=== PATIENT | male | born 1945 | race Caucasian/White ===

== ENCOUNTER 2016-08-24 07:24 | Outpatient (CLI) | payer MEDICARE | END 2016-08-24 07:25 | disposition home or self-care (01) | DX: E11.9 Type 2 diabetes mellitus without complications (principal); E03.9 Hypothyroidism, unspecified ==

== ENCOUNTER 2016-12-06 13:14 | Outpatient (CLI) | payer OTHER ==
[2016-12-06 18:54] LABS: HEMOGLOBIN A1C 0.81 g/dL
== END 2016-12-06 13:15 | disposition home or self-care (01) ==
LOC: LAB.F 13:14
PROVIDERS: ATTEND Internal Medicine
DX: E11.9 Type 2 diabetes mellitus without complications (principal)
CPT/HCPCS: 36415; 83036

== ENCOUNTER 2016-12-13 10:41 | Emergency (ER) | payer OTHER ==
[2016-12-13 11:09] LABS: BASOPHILS # (AUTO) 0.3 10^3/uL (0.0-0.1); BASOPHILS % (AUTO) 1.5 %; EOSINOPHILS # (AUTO) 0.1 10^3/uL (0.0-0.7); EOSINOPHILS % (AUTO) 0.8 %; HCT - HEMATOCRIT 44.7 % (42.0-52.0); HGB - HEMOGLOBIN 15.5 g/dL (14.0-18.0); LYMPHOCYTES # (AUTO) 0.6 10^3/uL (1.5-3.5); LYMPHOCYTES % (AUTO) 3.5 %; MEAN CORPUSCULAR HEMOGLOBIN 32.5 pg (27.0-31.0); MEAN CORPUSCULAR HGB CONC 34.7 g/dL (32.0-36.0); MEAN CORPUSCULAR VOLUME 93.6 fL (80.0-94.0); MEAN PLATELET VOLUME 8.1 fL (7.4-11.4); MONOCYTES # (AUTO) 0.7 10^3/uL (0.0-1.0); NEUTROPHILS # (AUTO) 15.7 10^3/uL (1.5-6.6); NEUTROPHILS % (AUTO) 90.2 %; RED BLOOD COUNT 4.78 10^6/uL (4.70-6.10); RED CELL DISTRIBUTION WIDTH 13.2 % (12.0-15.0); UNCORRECTED WHITE BLOOD COUNT 17.4 x10^3/uL; WHITE BLOOD COUNT 17.4 x10^3/uL (4.8-10.8)
--- NOTE | 2016-12-13 11:14 | ED Physician Documentation ---
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 denies: Fever Cardiac: denies: Chest pain / pressure, Palpitations Respiratory: denies: Dyspnea GI: denies: Abdominal Pain, Nausea, Vomiting, Diarrhea : denies: Dysuria Musculoskeletal: reports: Neck pain (left side) Neurologic: reports: Syncope, Head injury. denies: Generalized weakness, Headache Endocrine: denies: Easy bruising / bleeding Immunocompromised: denies: Immunocompromised PD PAST MEDICAL HISTORY - Past Medical History Cardiovascular: None Respiratory: None Endocrine/Autoimmune: HyPOthyroidism GI: GERD, Colon polyps : Benign prostate hypertrophy HEENT: None Psych: None Musculoskeletal: None Derm: None - Past Surgical History General: Colonoscopy, EGD Derm: Other - Present Medications Home Medications: Ambulatory Orders Medication Instructions Recorded Confirmed Aspirin EC [Ecotrin] 81 mg PO DAILY 03/30/13 12/13/16 Levothyroxine [Synthroid] 112 mcg PO QDAC 03/30/13 12/13/16 Omeprazole 20 mg PO BID 03/30/13 12/13/16 - Allergies Allergies/Adverse Reactions: Allergies Allergy/AdvReac Type Severity Reaction Status Date / Time latex Allergy unknown Verified 03/30/13 09:29 crab Allergy Unknown Hives Uncoded 03/30/13 09:29 - Social History Does the pt smoke?: No Smoking Status: Never smoker Does the pt drink ETOH?: Yes Does the pt have substance abuse?: No PD ED PE NORMAL - Vitals Vital signs reviewed: Yes (HTN) - General General: Alert and oriented X 3 - HEENT HEENT: PERRL. No: Atraumatic (abrasions and bruising to left face and scalp) - Neck Neck: No: No bony TTP (mild diffues and left sided pain) - Cardiac Cardiac: RRR - Respiratory Respiratory: No respiratory distress, Clear bilaterally - Abdomen Abdomen: Soft, Non tender - Derm Derm: Other (abrasions to face) - Extremities Extremities: No deformity, Normal ROM s pain, No edema, No calf tenderness / cord - Neuro Neuro: Alert and oriented X 3, fish grader 2-12 intact, No motor deficit, No sensory deficit, Normal speech Results - Vitals Vitals: Vital Signs - 24 hr 12/13/16 12/13/16 12/13/16 10:45 11:56 14:27 Temperature 36.2 C L Heart Rate 97 77 70 Respiratory 20 18 20 Rate Blood Pressure 165/109 H 148/87 H 159/87 H O2 Saturation 93 95 95 12/13/16 12/13/16 12/13/16 14:55 16:42 17:19 Temperature Heart Rate 78 74 Respiratory 18 17 Rate Blood Pressure 178/92 H 162/84 H O2 Saturation 95 96 94 12/13/16 12/13/16 17:45 19:13 Temperature Heart Rate 73 72 Respiratory 17 16 Rate Blood Pressure 162/82 H 144/77 H O2 Saturation 94 94 Oxygen O2 Source Room air - EKG (time done) 1100 Rate: Rate (enter#) (91) Rhythm: NSR [place]: Normal Intervals: Prolonged OH (borderline) Ischemia: Non specific changes (very subtle questionable ST depr lateral) - Labs Labs: Laboratory Tests 12/13/16 12/13/16 12/13/16 10:48 10:58 10:58 WBC 17.4 H RBC 4.78 Hgb 15.5 Hct 44.7 MCV 93.6 MCH 32.5 H MCHC 34.7 RDW 13.2 Plt Count 198 MPV 8.1 Neut # 15.7 H Lymph # 0.6 L [place] # 0.7 Eos # 0.1 Baso # 0.3 H Absolute Nucleated RBC 0.00 Nucleated RBCs 0.0 Manual Slide Review Indicated Platelet Estimate NORMAL (130-450,000) Platelet Morphology NORMAL APPEARANCE RBC Morph Micro Appear NORMAL APPEARANCE Sodium 135 Potassium 4.0 Chloride 101 Carbon Dioxide 25 Anion Gap 9.0 BUN 18 Creatinine 1.1 Estimated GFR (MDRD) 66 L Glucose 177 H POC Whole Bld Glucose 210 H Calcium 9.0 Troponin I Urine Color Urine Clarity Urine pH Ur Specific Cucumber Urine Protein Urine Glucose (UA) Urine Ketones Urine Occult Blood Urine Nitrite Urine Bilirubin Urine Urobilinogen Ur Leukocyte Esterase Urine RBC Urine WBC Ur Squamous Epith Cells Urine Bacteria Urine Sperm Ur Microscopic Review Urine Culture Comments 12/13/16 12/13/16 10:58 11:30 WBC RBC Hgb Hct MCV MCH MCHC RDW Plt Count MPV Neut # Lymph # [place] # Eos # Baso # Absolute Nucleated RBC Nucleated RBCs Manual Slide Review Platelet Estimate Platelet Morphology RBC Morph Micro Appear Sodium Potassium Chloride Carbon Dioxide Anion Gap BUN Creatinine Estimated GFR (MDRD) Glucose POC Whole Bld Glucose Calcium Troponin I < 0.04 Urine Color YELLOW Urine Clarity CLEAR Urine pH 6.0 Ur Specific [place] 1.025 Urine Protein NEGATIVE Urine Glucose (UA) NEGATIVE Urine Ketones NEGATIVE Urine Occult Blood SMALL H Urine Nitrite NEGATIVE Urine Bilirubin NEGATIVE Urine Urobilinogen 0.2 (NORMAL) Ur Leukocyte Esterase NEGATIVE Urine RBC 6-10 H Urine WBC 0-3 Ur Squamous Epith Cells NONE SEEN Urine Bacteria Rare Urine Sperm PRESENT Ur Microscopic Review INDICATED Urine Culture Comments NOT INDICATED - Rads (name of study) CXR Radiology: See rad report (NACPD) CTCS Radiology: See rad report (no acute injury) CTH Radiology: See rad report (substantial hypodensity/edema L frontal lobe with associated mass effect and 6 mm L -> R shift suspcious for underlying mass/ malignancy, minimal petecchial hemorrhage not excluded, rec MRI with/without) CTPA Radiology: See rad report (no PE) MRI with without Radiology: See rad report (3.1 X 2.8 X 2.5 cm L frontal extra axial mass most likely a meningioma but with prominent peripheral vessels, surrounding vasogenic edema causing 6 mm of shift) PD MEDICAL DECISION MAKING - ED course ED course: brain mass with edema and shift and syncope or seizure gave decadron spoke to [facility] to arrange transfer, neuro rec keppra 1 g IV, and pt accepted to [facility], LULÚ completed, turned over to steward/stewardess night pending transfer Departure - Departure Disposition: 02 Transfer Acute Care Hosp Clinical Impression: Brain mass Syncope Qualifiers: Syncope type: unspecified Qualified Code(s): R55 - Syncope and collapse
[2016-12-13 11:18] LABS: CREATININE 1.1 mg/dL (0.6-1.2)
[2016-12-13 11:31] LABS: PLATELET ESTIMATE, MANUAL NORMAL (130-450,000) (NORMAL); PLATELET MORPHOLOGY NORMAL APPEARANCE (NORMAL)
[2016-12-13 11:40] LABS: BILIRUBIN,URINE NEGATIVE (NEGATIVE)
[2016-12-13 11:43] LABS: UA w/ MICROSCOPIC CHARGE YES
[2016-12-13 11:52] LABS: SPERM,URINE PRESENT; UR CULTURE IF IND NOT INDICATED; WBC,URINE 0-3 /HPF (0-3)
--- NOTE | 2016-12-13 12:18 | CT Preliminary Report ---
Exam: CT Head W/O IMPRESSION: 1. Substantial hypodensity/edema involving the left frontal lobe, predominantly white matter distribu tion, with associated mass effect including [id number] midline shift measuring 6 mm. This is suspi cious for underlying mass/malignancy, as discussed above. Minimal cortical petechial hemorrhage or roman btle arachnoid hemorrhage is not excluded. Further evaluation by MR imaging with and without contrast is recommended. 2. Findings consistent with underlying age-related cerebral volume loss. [facility] The above critical findings were discussed with Cindy Barlow by Dr. Suresh Gomez at 12:12 hrs on 11/18 12/03. SITE ID: [id number]
--- NOTE | 2016-12-13 12:21 | CT Report ---
EXAM: CT HEAD EXAM DATE: 12/13/2016 11:51 AM. CLINICAL HISTORY: Syncope fall HI. COMPARISON: None. TECHNIQUE: Multiaxial CT images were obtained from the foramen magnum to the vertex. IV contrast: Non e. Reformats: Coronal. In accordance with CT protocol optimization, one or more of the following dose reduction techniques w ere utilized for this exam: automated exposure control, adjustment of mA and/or KV based on patient s ize, or use of iterative reconstructive technique. FINDINGS: Parenchyma: Broad hypodensity predominantly within the white matter of the left frontal lobe. There i s associated mass effect with frontal lobe sulcal effacement and also left to right midline shift galileo suring 6 mm. The pattern is suspicious for underlying neoplasm/malignancy. There is a more confluent soft tissue density component anteriorly (2/20) measuring approximately 3.4 x 2.3 cm which could poss ibly represent an area of less edematous parenchyma and effaced underlying sulcus but is suspicious f or a mass. A focal extra-axial process such as mass or hematoma is considered unlikely. There are few areas of subtle linear increased density in the cortical region for which very mild cortical petechi al hemorrhage or subarachnoid hemorrhage cannot be excluded. No discrete hematoma or other definite i ntracranial hemorrhage demonstrated. Extraaxial Spaces: Normal for age. No subdural or epidural collections identified. Ventricles: The ventricles and cortical sulci are enlarged, consistent with age-related tissue loss. Sinuses: Imaged paranasal sinuses, orbits, and mastoids show no significant abnormality. Bones: No evidence of fracture or calvarial defect. Other: None. IMPRESSION: 1. Substantial hypodensity/edema involving the left frontal lobe, predominantly white matter distribu tion, with associated mass effect including [id number] midline shift measuring 6 mm. This is suspi cious for underlying mass/malignancy, as discussed above. Minimal cortical petechial hemorrhage or roman btle arachnoid hemorrhage is not excluded. Further evaluation by MR imaging with and without contrast is recommended. 2. Findings consistent with underlying age-related cerebral volume loss. [facility] The above critical findings were discussed with Cindy Barlow by Dr. Suresh Gomez at 12:12 hrs on 11/18 12/03. Referring Provider Line: [phone] SITE ID: [id number]
--- NOTE | 2016-12-13 12:22 | CT Preliminary Report ---
Exam: CT Cervical Spine W/O IMPRESSION: 1. No fracture or acute abnormality of the cervical spine. 2. Degenerative disease, as detailed above. Findings telephoned by Dr. Gomez to Cindy barber on 12/13/2016 at 1212 hrs. [facility] SITE ID: [id number]
--- NOTE | 2016-12-13 12:23 | XRAY Preliminary Report ---
Exam: XR Chest 1 View IMPRESSION: No acute abnormality of the chest demonstrated. [facility] SITE ID: [id number]
--- NOTE | 2016-12-13 12:24 | CT Report ---
EXAM: CT CERVICAL SPINE WITHOUT CONTRAST DATE: 12/13/2016 11:50 AM HISTORY: Fall neck pain. COMPARISONS: None. TECHNIQUE: Thin-section axial images were acquired of the cervical spine without contrast. Post-proce ssing: Coronal and sagittal reformats. Other: None. In accordance with CT protocol optimization, one or more of the following dose reduction techniques w ere utilized for this exam: automated exposure control, adjustment of mA and/or KV based on patient s ize, or use of iterative reconstructive technique. FINDINGS: Alignment: Levoconvex of the cervical curvature. No listhesis. Bones: No fracture or bone lesion. Interspace Levels/Facets: Severe multilevel degenerative disk disease with disk space narrowing and vertebral body spurring gre atest at C5-C6, C6-C7 and C7-T1 and slightly less C3-C4 and C4-C5. Anterior C1-C2 degenerative diseas e also demonstrated including a 4.5 mm cyst within the base of the odontoid process. Moderate left C2 -C3 degenerative facet disease with mild degenerative change at other facet levels. Multilevel verteb ral body and uncovertebral spurring is present with multilevel associated mild anterior epidural encr oachment and multilevel bony neural foraminal narrowing, greatest on the right at C4-C5 and C5-C6. Musculature: Normal. No fatty atrophy. Other: The paravertebral and prevertebral soft tissues are normal. The lung apices are clear. IMPRESSION: 1. No fracture or acute abnormality of the cervical spine. 2. Degenerative disease, as detailed above. Findings telephoned by Dr. Gomez to Cindy barber on 12/13/2016 at 1212 hrs. [facility] Referring Provider Line: [phone] SITE ID: [id number]
--- NOTE | 2016-12-13 12:26 | XRAY Report ---
EXAM: CHEST RADIOGRAPHY EXAM DATE: 12/13/2016 11:54 AM. CLINICAL HISTORY: Syncope. COMPARISON: 02/27/2006. TECHNIQUE: 1 view. FINDINGS: Lungs/Pleura: No definite pulmonary infiltrate. No pleural effusion or pneumothorax. Mediastinum: Within exam limitations, heart size is within upper range of normal. Other: None. IMPRESSION: No acute abnormality of the chest demonstrated. [facility] Referring Provider Line: [phone] SITE ID: [id number]
[2016-12-13] MEDS ORDERED: IOPAMIDOL-300 100 ML VIAL IVP ONE (13:34)
--- NOTE | 2016-12-13 14:05 | CT Preliminary Report ---
Exam: CT Chest Angio (PE) IMPRESSION: 1. Negative for pulmonary embolism at this time. Unremarkable aorta. 2. Other incidental or chronic findings. [facility] S[facility] [id number]
--- NOTE | 2016-12-13 14:07 | CT Report ---
EXAM: CT ANGIOGRAM CHEST EXAM DATE: 12/13/2016 01:33 PM. CLINICAL HISTORY: Syncope hypoxia. COMPARISON: None. TECHNIQUE: Routine helical imaging was performed through the chest in the pulmonary arterial phase. I V Contrast: 80 cc Isovue-300. Reconstructions: Sagittal, coronal, and 3-D MIP. In accordance with CT protocol optimization, one or more of the following dose reduction techniques w ere utilized for this exam: automated exposure control, adjustment of mA and/or KV based on patient s ize, or use of iterative reconstructive technique. FINDINGS: Pulmonary Arteries: Diagnostic quality: Adequate through the segmental arteries. No evidence for acute or chronic pulmona ry emboli. RV/LV is within normal limits. There is no interventricular septal bowing. There is mild reflux of co ntrast material in the IVC. Lungs/Pleura: Clear. No effusion or pneumothorax. Mediastinum: Normal heart size. No pericardial effusion. At least one vessel coronary artery calcific ation. No lymphadenopathy. Thoracic Aorta: Unremarkable. Upper Abdomen: Unremarkable. Other: Degenerative changes. IMPRESSION: 1. Negative for pulmonary embolism at this time. Unremarkable aorta. 2. Other incidental or chronic findings. [facility] Referring Provider Line: [phone] SITE ID: [id number]
[2016-12-13] MEDS ORDERED: GADOBUTROL 10 MMOL/10 ML VIAL IVP ONE (14:46)
--- NOTE | 2016-12-13 15:27 | MRI Preliminary Report ---
Exam: MRI Brain W/WO Impression: 1. Corresponding to isodense mass lesion demonstrated in left frontal region on recent head CT there is a roughly 3.1 x 2.8 x 2.55 cm robustly enhancing extra-axial mass lesion with dural tail. Statisti ike this most likely represents a meningioma. However, there are some atypical imaging features, in cluding very prominent vessels along the margin of the mass. This makes it impossible to exclude othe r extra-axial lesions including hypervascular, dural based metastases (ie. From renal or thyroid canc er) and hemangiopericytoma. Given the prominent vascular structures adjacent to the mass strong consideration should be given tow ards preoperative angiography with an aim towards embolization of these vessels prior to planned surg ical resection. 2. There is a fairly extensive area of abnormal T2 hyperintensity infiltrating the white matter of th e left frontal lobe, likely representing reactive vasogenic edema. However, it is difficult to exclud e early brain invasion by this extra-axial mass lesion. 3. Left-sided mass effect as described including left right midline shift of close to 6 mm. The basal cisterns appear patent. 4. No additional enhancing intracranial space-occupying mass lesion is demonstrated. Comment: Neurosurgical/neuro-oncology referral is strongly recommended SITE ID: [id number]
[2016-12-13] MEDS ORDERED: DEXAMETHASONE 10 MG/ML VIAL IVP STA (15:32)
[2016-12-13] MEDS ORDERED: DEXAMETHASONE 10 MG/ML VIAL ONE (15:40)
--- NOTE | 2016-12-13 16:03 | MRI Report ---
MRI BRAIN WITHOUT AND WITH CONTRAST INDICATION: 71-year-old male with syncope or seizure. Has left frontal region mass lesion on unenhanc ed head CT. Please assess. TECHNIQUE: 1. T1 sagittal and fat-saturated T2 coronal. 2. Axial T1 MP RAGE, FLAIR, T2, T2* and DWI. 3. 8.5 cc IV Gadavist. T1 3-D MP RAGE axial. COMPARISON: Unenhanced head CT 12/13/2016. FINDINGS: Corresponding to the isodense lesion demonstrated on head CT there is a well-defined, extra-axial mas s lesion in upper, lateral, anterior to mid left frontal region. The mass demonstrates a very robust and relatively homogeneous enhancement on postcontrast sequence. It measures about 3.1 cm maximal AP by about 2.8 cm maximal transverse by 2.55 cm maximal craniocaudad. There is an enhancing dural tail. The lesion demonstrates only mild T2 hyperintensity. No diffusion restriction is identified within t he lesion. There is no invasion of the overlying bony calvaria. In addition, no hyperostosis of the i nner table is demonstrated, a finding commonly seen with meningioma. Noted are prominent, tortuous ve ssels along the inferior and medial aspect of the mass (see image 16 of series 601 and image 7 of ser ies 1001). There is a fairly large geographic area of abnormal T2/FLAIR hyperintensity infiltrating t he white matter of the left frontal lobe and extending into the anterior, left subinsular region. Mas s effect is demonstrated with partial compression and downward displacement of the ipsilateral latera l ventricle. There is jyac-fl-bctzo midline shift of about 5.9 mm. The basal cisterns appear patent. There is generalized, age-appropriate cerebral volume loss with associated ex vacuo ventriculomegaly. No evidence of hydrocephalus. A very mild amount of white matter disease identified in the supratentorial brain, likely representin g chronic microangiopathy. A tiny linear T2 hyperintense focus is seen in the mid right cerebellum li edson representing the sequela of remote minor embolic-type ischemic infarction. Flow voids are demonstrated in the main intracranial arteries. No abnormal diffusion restriction is d emonstrated. No evidence of acute or chronic hemorrhage on susceptibility-weighted sequence. Noted is normal intravascular contrast enhancement in the dural venous sinuses and deep venous struct ures. This effectively excludes the possibility of venous sinus thrombosis. Limited assessment of the orbits reveals no gross pathology. Mild mucosal thickening is seen scattere d throughout the paranasal sinuses. No air-fluid level is demonstrated. No significant mastoid or mid dle ear effusion is seen. Marrow signal intensity in the regional skeletal structures is unremarkable. IMPRESSION: 1. Corresponding to isodense mass lesion demonstrated in left frontal region on recent head CT there is a roughly 3.1 x 2.8 x 2.55 cm robustly enhancing extra-axial mass lesion with dural tail. Statisti ike this most likely represents a meningioma. However, there are some atypical imaging features, in cluding a very prominent vessels along the margin of the mass. This makes it impossible to exclude ot her extra-axial lesions including hypervascular, dural-based metastases (i.e. from renal or thyroid c ancer) and hemangiopericytoma. Given the prominent vascular structures adjacent to the mass, strong consideration should be given to wards preoperative angiography with aim towards embolization of these vessels prior to planned surgic al resection. 2. There is a fairly extensive area of abnormal T2 hyperintensity infiltrating the white matter of th e left frontal lobe, likely representing reactive vasogenic edema. However, it is difficult to exclud e early brain invasion by this extra-axial mass lesion. 3. Left-sided mass effect as described including left right midline shift of close to 6 mm. The basal cisterns appear patent. 4. No additional enhancing intracranial space-occupying mass lesion is demonstrated. Comment: Neurosurgical/neuro-oncology referral is strongly recommended. Referring Provider Line: [phone] SITE ID: [id number]
[2016-12-13] MEDS ORDERED: levETIRAcetam INJ 1,000 MG in SODIUM CHLORIDE 0.9% 100ML 100 ML IV STA (18:44)
[2016-12-13 21:16] VITALS: BP 137/74
== END 2016-12-13 22:16 | disposition short-term general hospital (02) ==
LOC: ED 10:41
DX: G93.9 Disorder of brain, unspecified (principal); R55 Syncope and collapse; E03.9 Hypothyroidism, unspecified; K21.9 Gastro-esophageal reflux disease without esophagitis; N40.0 Benign prostatic hyperplasia without lower urinary tract symptoms; Z86.010 Personal history of colon polyps; Z79.82 Long term (current) use of aspirin
CPT/HCPCS: 36415; 70450; 70553; 71010; 71275; 72125; 80048; 81001; 84484; 85025; 93005; 96374; 96375; 99284; 99285; A9585; Q9967; 81003; 87086

== ENCOUNTER 2017-04-02 07:15 | Outpatient (CLI) | payer OTHER ==
[2017-04-02 11:57] LABS: ALBUMIN/GLOBULIN RATIO 1.3 (1.0-2.2); BILIRUBIN,TOTAL 0.4 mg/dL (0.2-1.0); CALCIUM 8.8 mg/dL (8.5-10.3); CREATININE 0.9 mg/dL (0.6-1.2); POTASSIUM 4.1 mmol/L (3.5-5.0); TOTAL PROTEIN 6.7 g/dL (6.7-8.2)
[2017-04-02 12:06] LABS: HEMOGLOBIN A1C 0.96 g/dL
== END 2017-04-02 07:16 | disposition home or self-care (01) ==
LOC: LAB.F 07:15
PROVIDERS: ATTEND Internal Medicine
DX: E11.9 Type 2 diabetes mellitus without complications (principal); E03.9 Hypothyroidism, unspecified; N40.0 Benign prostatic hyperplasia without lower urinary tract symptoms; Z12.5 Encounter for screening for malignant neoplasm of prostate; Z79.899 Other long term (current) drug therapy
CPT/HCPCS: 36415; 80053; 83036; 84153; 84443

== ENCOUNTER 2017-07-05 08:14 | Outpatient (CLI) | payer MEDICARE ==
[2017-07-05 10:33] LABS: HB2 TOTAL 16.8 g/dL; HEMOGLOBIN A1C 0.98 g/dL; HEMOGLOBIN A1C % 7.5 % (4.6-6.2)
== END 2017-07-05 08:15 | disposition home or self-care (01) ==
LOC: LAB.F 08:14
PROVIDERS: ATTEND Internal Medicine
DX: E11.9 Type 2 diabetes mellitus without complications (principal)
CPT/HCPCS: 36415; 83036

== ENCOUNTER 2017-11-27 12:16 | Outpatient (CLI) | payer MEDICARE ==
[2017-11-27 17:53] LABS: HB2 TOTAL 16.1 g/dL; HEMOGLOBIN A1C 0.71 g/dL; HEMOGLOBIN A1C % 6.2 % (4.6-6.2)
== END 2017-11-27 12:17 | disposition home or self-care (01) ==
LOC: LAB.F 12:16
PROVIDERS: ATTEND Internal Medicine
DX: E11.9 Type 2 diabetes mellitus without complications (principal)
CPT/HCPCS: 36415; 83036

== ENCOUNTER 2018-04-07 15:01 | Emergency (ER) | payer MEDICARE ==
--- NOTE | 2018-04-07 15:49 | ED Physician Documentation ---
PD HPI ABD PAIN - Stated complaint Stated Complaint: CHILLS,DIZZY - Chief complaint Chief Complaint: Abd Pain - History obtained from History obtained from: Patient - History of Present Illness Timing - onset: Other (3 days increasing RUQ tenderness (but no pain unless being palpated) and jaundice starting around the same time. Also itching. Dark urine. Fevers on anfd off for 2 weeks. No H/O intraabd surgeries except prostate and hernia.) Review of Systems Ten Systems: 10 systems reviewed and negative Constitutional: denies: Fever, Chills Nose: reports: Reviewed and negative Throat: reports: Reviewed and negative Cardiac: reports: Reviewed and negative PD PAST MEDICAL HISTORY - Past Medical History Cardiovascular: Hypertension Respiratory: None Neuro: None Endocrine/Autoimmune: Type 2 diabetes, HyPOthyroidism GI: GERD, Colon polyps : Benign prostate hypertrophy HEENT: None Psych: None Musculoskeletal: None Derm: None - Past Surgical History Past Surgical History: Yes General: Colonoscopy, EGD Derm: Other - Present Medications Home Medications: Ambulatory Orders Medication Instructions Recorded Confirmed Aspirin EC [Ecotrin] 81 mg PO DAILY 03/30/13 12/13/16 Levothyroxine [Synthroid] 112 mcg PO QDAC 03/30/13 12/13/16 Omeprazole 20 mg PO BID 03/30/13 12/13/16 - Allergies Allergies/Adverse Reactions: Allergies Allergy/AdvReac Type Severity Reaction Status Date / Time latex Allergy unknown Verified 04/07/18 15:11 crab Allergy Unknown Hives Uncoded 04/07/18 15:11 - Living Situation Living Situation: reports: With spouse/s.o. - Social History Does the pt smoke?: No Smoking Status: Never smoker Does the pt drink ETOH?: Yes ETOH Use: Beer Does the pt have substance abuse?: No - Family History Family history: reports: Non contributory - Immunizations Immunizations are current?: Yes - POLST Patient has POLST: No PD ED PE NORMAL - Vitals Vital signs reviewed: Yes - General General: Alert and oriented X 3, No acute distress, Other (Jaundice) - HEENT HEENT: PERRL, EOMI - Neck Neck: Supple, no meningeal sign, No bony TTP - Cardiac Cardiac: RRR, No murmur - Respiratory Respiratory: No respiratory distress, Clear bilaterally - Abdomen Abdomen: Other (Tenderness the right upper quadrant without surgical signs) - Back Back: No CVA TTP, No spinal TTP - Derm Derm: Normal color, Warm and dry - Extremities Extremities: No edema, No calf tenderness / cord - Neuro Neuro: Alert and oriented X 3, Normal speech - Psych Psych: Normal mood, Normal affect Results - Vitals Vitals: Vital Signs - 24 hr 04/07/18 04/07/18 15:08 18:35 Temperature 36.7 C 36.4 C L Heart Rate 110 H 100 Respiratory 22 18 Rate Blood Pressure 143/90 H 121/78 O2 Saturation 97 95 Oxygen O2 Source Room air - Labs Labs: Laboratory Tests 04/07/18 04/07/18 04/07/18 15:43 15:43 15:43 WBC 26.4 H RBC 3.96 L Hgb 12.9 L Hct 38.1 L MCV 96.3 H MCH 32.5 H MCHC 33.7 RDW 13.8 Plt Count 463 H MPV 8.1 Neut # (Auto) Not Reportable Lymph # (Auto) Not Reportable [place] # (Auto) Not Reportable Eos # (Auto) Not Reportable Baso # (Auto) Not Reportable Absolute Nucleated RBC Not Reportable Total Counted 100 Band Neuts % (Manual) 6 Abnorm Lymph % (Manual) 0 Metamyelocytes % 1 H Nucleated RBC % Not Reportable Neutrophils # (Manual) 23.8 H Lymphocytes # (Manual) 1.1 L Monocytes # (Manual) 1.3 H Eosinophils # (Manual) 0.0 Basophils # (Manual) 0.0 Differential Comment MANUAL DIFFERENTIAL Manual Slide Review Indicated WBC Morphology NORMAL APPEARANCE Platelet Estimate INCREASED (>450,000) Platelet Morphology NORMAL APPEARANCE RBC Morph Micro Appear NORMAL APPEARANCE PT 14.5 H INR 1.3 H APTT 29.7 Sodium 130 L Potassium 3.6 Chloride 96 L Carbon Dioxide 23 Anion Gap 11.0 BUN 30 H Creatinine 1.6 H Estimated GFR (MDRD) 42 L Glucose 120 H Lactic Acid Calcium 8.5 Total Bilirubin 8.6 H AST 56 H ALT 123 H Alkaline Phosphatase 276 H Total Protein 7.2 Albumin 3.0 L Globulin 4.2 Albumin/Globulin Ratio 0.7 L Lipase 46 Urine Color Urine Clarity Urine pH Ur Specific [place] Urine Protein Urine Glucose (UA) Urine Ketones Urine Occult Blood Urine Nitrite Urine Bilirubin Urine Urobilinogen Ur Leukocyte Esterase Urine RBC Urine WBC Ur Squamous Epith Cells Urine Crystals Amorphous Sediment Urine Bacteria Urine Casts Urine Mucus Ur Microscopic Review Urine Culture Comments 04/07/18 04/07/18 15:43 15:50 WBC RBC Hgb Hct MCV MCH MCHC RDW Plt Count MPV Neut # (Auto) Lymph # (Auto) [place] # (Auto) Eos # (Auto) Baso # (Auto) Absolute Nucleated RBC Total Counted Band Neuts % (Manual) Abnorm Lymph % (Manual) Metamyelocytes % Nucleated RBC % Neutrophils # (Manual) Lymphocytes # (Manual) Monocytes # (Manual) Eosinophils # (Manual) Basophils # (Manual) Differential Comment Manual Slide Review WBC Morphology Platelet Estimate Platelet Morphology RBC Morph Micro Appear PT INR APTT Sodium Potassium Chloride Carbon Dioxide Anion Gap BUN Creatinine Estimated GFR (MDRD) Glucose Lactic Acid 2.1 Calcium Total Bilirubin AST ALT Alkaline Phosphatase Total Protein Albumin Globulin Albumin/Globulin Ratio Lipase Urine Color BROWN Urine Clarity CLEAR Urine pH 5.5 Ur Specific [place] >=1.030 H Urine Protein 100 H Urine Glucose (UA) NEGATIVE Urine Ketones NEGATIVE Urine Occult Blood MODERATE H Urine Nitrite NEGATIVE Urine Bilirubin LARGE H Urine Urobilinogen 2 H Ur Leukocyte Esterase NEGATIVE Urine RBC 6-10 H Urine WBC 11-25 H Ur Squamous Epith Cells RARE Squamous Urine Crystals 11-25 Bilirubin Amorphous Sediment Rare Urine Bacteria Rare Urine Casts 11-25 Hyaline Casts Urine Mucus Few Strands Ur Microscopic Review INDICATED Urine Culture Comments INDICATED PD MEDICAL DECISION MAKING - ED course ED course: 72-year-old gentleman with signs and symptoms of biliary obstruction with labs consistent with same and a CT concerning for cholangitis. Although no specific blockages seen one is presumed based on the rest of his workup. Spoke with Dr. Bobby Dominguez who feels he should be transferred to a facility capable of ERCP and [facility] was called at 6 PM for same. He was accepted by Dr. Jose Luis edmonds's [facility] at [facility] and cobras were completed. Departure - Departure Disposition: 02 Transfer Acute Care Hosp Clinical Impression: Cholangitis Condition: Stable
[2018-04-07] MEDS ORDERED: IOPAMIDOL-300 100 ML VIAL ONE (15:57)
[2018-04-07 16:00] LABS: INR 1.3 (0.8-1.2); PT - PROTHROMBIN TIME 14.5 secs (9.9-12.6)
[2018-04-07 16:02] LABS: CLARITY,URINE CLEAR (CLEAR); GLUCOSE, URINE (UA) NEGATIVE (NEGATIVE); KETONES,URINE (UA) NEGATIVE (NEGATIVE); LEUKOCYTE ESTERASE, URINE NEGATIVE (NEGATIVE); NITRITE,URINE NEGATIVE (NEGATIVE); OCCULT BLOOD,URINE MODERATE (NEGATIVE); PH,URINE 5.5 PH (5.0-7.5); PROTEIN,URINE 100 mg/dL (NEGATIVE); UROBILINOGEN,URINE 2 E.U./dL (NORMAL)
[2018-04-07 16:03] LABS: BILIRUBIN,URINE LARGE (NEGATIVE); ICTOTEST,URINE POSITIVE
[2018-04-07 16:03] LABS: BASOPHILS % (AUTO) 0.5 %; EOSINOPHILS % (AUTO) 0.1 %; HGB - HEMOGLOBIN 12.9 g/dL (14.0-18.0); LYMPHOCYTES % (AUTO) 4.3 %; MEAN CORPUSCULAR HEMOGLOBIN 32.5 pg (27.0-31.0); MEAN CORPUSCULAR HGB CONC 33.7 g/dL (32.0-36.0); MEAN CORPUSCULAR VOLUME 96.3 fL (80.0-94.0); MEAN PLATELET VOLUME 8.1 fL (7.4-11.4); MONOCYTES % (AUTO) 4.9 %; NEUTROPHILS % (AUTO) 90.2 %; PLT - PLATELET COUNT 463 10^3/uL (130-450); RED BLOOD COUNT 3.96 10^6/uL (4.70-6.10); RED CELL DISTRIBUTION WIDTH 13.8 % (12.0-15.0); WHITE BLOOD COUNT 26.4 x10^3/uL (4.8-10.8)
[2018-04-07 16:05] LABS: ABNORMAL LYMPHS % (MANUAL) 0 %
[2018-04-07 16:15] LABS: AMORPHOUS SEDIMENT,UR Rare /LPF; BACTERIA,URINE Rare /HPF (None Seen); CASTS, URINE 11-25 Hyaline Casts /LPF; CRYSTALS,URINE 11-25 Bilirubin /LPF; MUCUS,URINE Few Strands; SQUAMOUS EPITHELIAL CELL,UR RARE Squamous (<= Few)
--- NOTE | 2018-04-07 16:24 | XRAY Report ---
Reason: tachy, jaundice, fever Procedure Date: 04/07/2018 Accession Number: [id number] / [id number] Procedure: XR - Chest 1 View X-Ray CPT Code: 98849 FULL RESULT: EXAM: CHEST RADIOGRAPHY EXAM DATE: 04/07/2018 04:04 PM. CLINICAL HISTORY: Tachycardia, jaundice, fever. COMPARISON: CHEST 1 VIEW 12/13/2016 11:36 AM. TECHNIQUE: 1 view. FINDINGS: Lung volumes are low, which accentuate the cardiac silhouette and bronchovascular markings. Mild asymmetric elevation of the right hemidiaphragm. Calcified plaques in the thoracic aorta. No consolidation, pleural effusion, pneumothorax. IMPRESSION: Low lung volumes. No evidence of focal pneumonia. RADIA
[2018-04-07 16:29] LABS: BAND NEUTROPHILS % (MANUAL) 6 %; DIFFERENTIAL COMMENT MANUAL DIFFERENTIAL; LYMPHOCYTES # (MANUAL) 1.1 10^3/uL (1.5-3.5); LYMPHOCYTES % (MANUAL) 4 %; METAMYELOCYTES % (MANUAL) 1 %; MONOCYTES # (MANUAL) 1.3 10^3/uL (0.0-1.0); NEUTROPHILS # (MANUAL) 23.8 10^3/uL (1.5-6.6); NEUTROPHILS % (MANUAL) 84 %; PLATELET ESTIMATE, MANUAL INCREASED (>450,000) (NORMAL); PLATELET MORPHOLOGY NORMAL APPEARANCE (NORMAL); RBC MORPHOLOGY (MULTIPLE) NORMAL APPEARANCE (NORMAL)
[2018-04-07] MEDS: HYDROmorphone 1 MG/ML CARPUJECT IVP STA (16:33)
[2018-04-07 16:55] LABS: ALBUMIN/GLOBULIN RATIO 0.7 (1.0-2.2); BILIRUBIN,TOTAL 8.6 mg/dL (0.2-1.0); CALCIUM 8.5 mg/dL (8.5-10.3); CREATININE 1.6 mg/dL (0.6-1.2); TOTAL PROTEIN 7.2 g/dL (6.7-8.2)
[2018-04-07] MEDS: IOPAMIDOL-300 100 ML VIAL IVP ONE (17:11)
[2018-04-07] MEDS: SODIUM CHLORIDE 0.9% 1,000 ML IV ONE (17:27)
[2018-04-07] MEDS: PIPERACILLIN/TAZOBACTAM 3.375 GM in SODIUM CHLORIDE 0.9% MINIBAG 100 ML IV STA (17:36)
--- NOTE | 2018-04-07 17:49 | CT Report ---
Reason: IV only, RUQ pain jaundice. Procedure Date: 04/07/2018 Accession Number: [id number] / [id number] Procedure: CT - Abdomen/Pelvis W/ CPT Code: FULL RESULT: EXAM: CT ABDOMEN AND PELVIS EXAM DATE: 04/07/2018 05:10 PM. CLINICAL HISTORY: Right upper quadrant pain, jaundice. COMPARISONS: None. TECHNIQUE: Routine helical CT imaging was performed through the abdomen and pelvis. IV contrast: ISOVUE 300 100mL. Enteric contrast: No. Reconstructions: Coronal and sagittal. In accordance with CT protocol optimization, one or more of the following dose reduction techniques were utilized for this exam: automated exposure control, adjustment of mA and/or KV based on patient size, or use of iterative reconstructive technique. FINDINGS: Lung Bases: Unremarkable. Liver: Normal. No masses. Gallbladder/Bile Ducts: There is irregular gallbladder wall thickening noting several small mural diverticula. Pericholecystic inflammatory stranding is seen without evidence of fluid. The common bile duct measures 10 mm in diameter. No calcified stones seen. Spleen: Normal. Pancreas: Normal. Adrenal Glands: Normal. Kidneys: Normal. No masses or hydronephrosis. Peritoneal Cavity/Bowel: Normal. No free fluid, free air or adenopathy. No masses or acute inflammatory process. The appendix is well visualized and normal. Pelvic Organs: Normal. The bladder and visualized pelvic organs are within normal limits. Vasculature: Atherosclerotic aorta without evidence of aneurysm. Bones: No acute bony abnormality. Mild chronic L1 superior endplate compression fracture deformity. Other: None. IMPRESSION: 1. Acute cholecystitis and adenomyomatosis. 2. Mild common bile duct dilatation, no obstructing mass seen, however, choledocholithiasis not excluded. RADIA
[2018-04-07 20:51] VITALS: BP 141/80
[2018-04-07] MEDS: ACETAMINOPHEN 325 MG TABLET PO STA (20:59)
== END 2018-04-07 21:44 | disposition short-term general hospital (02) ==
LOC: ED 15:01
DX: K83.09 Other cholangitis (principal); I10 Essential (primary) hypertension; E11.9 Type 2 diabetes mellitus without complications; E03.9 Hypothyroidism, unspecified; Z79.82 Long term (current) use of aspirin
CPT/HCPCS: 36415; 71045; 74177; 80053; 81001; 81003; 83605; 83690; 85025; 85610; 85730; 87040; 87077; 87086; 87181; 96361; 96365; 99283; 99284

== ENCOUNTER 2018-04-28 08:00 | Outpatient (CLI) | payer MEDICARE ==
[2018-04-28 12:07] LABS: BASOPHILS # (AUTO) 0.2 10^3/uL (0.0-0.1); BASOPHILS % (AUTO) 1.8 %; EOSINOPHILS # (AUTO) 0.5 10^3/uL (0.0-0.7); EOSINOPHILS % (AUTO) 5.6 %; HGB - HEMOGLOBIN 12.2 g/dL (14.0-18.0); LYMPHOCYTES # (AUTO) 1.6 10^3/uL (1.5-3.5); LYMPHOCYTES % (AUTO) 16.2 %; MEAN CORPUSCULAR HGB CONC 34.5 g/dL (32.0-36.0); MEAN CORPUSCULAR VOLUME 95.6 fL (80.0-94.0); MEAN PLATELET VOLUME 8.1 fL (7.4-11.4); MONOCYTES # (AUTO) 0.5 10^3/uL (0.0-1.0); MONOCYTES % (AUTO) 5.4 %; NEUTROPHILS # (AUTO) 6.9 10^3/uL (1.5-6.6); PLT - PLATELET COUNT 416 10^3/uL (130-450); RED CELL DISTRIBUTION WIDTH 14.6 % (12.0-15.0); WHITE BLOOD COUNT 9.7 x10^3/uL (4.8-10.8)
[2018-04-28 12:14] LABS: ALBUMIN 3.5 g/dL (3.2-5.5); ALBUMIN/GLOBULIN RATIO 0.9 (1.0-2.2); BILIRUBIN,TOTAL 1.2 mg/dL (0.2-1.0); CALCIUM 9.3 mg/dL (8.5-10.3); CREATININE 0.9 mg/dL (0.6-1.2); TOTAL PROTEIN 7.3 g/dL (6.7-8.2)
[2018-04-28 12:24] LABS: HB2 TOTAL 12.2 g/dL; HEMOGLOBIN A1C 0.48 g/dL; HEMOGLOBIN A1C % 5.8 % (4.6-6.2)
[2018-04-28 12:39] LABS: DIFFERENTIAL COMMENT MANUAL=AUTO DIFF
== END 2018-04-28 08:01 | disposition home or self-care (01) ==
LOC: LAB.F 08:00
PROVIDERS: ATTEND Internal Medicine
DX: I10 Essential (primary) hypertension (principal); E11.9 Type 2 diabetes mellitus without complications; E03.9 Hypothyroidism, unspecified; N40.0 Benign prostatic hyperplasia without lower urinary tract symptoms
CPT/HCPCS: 36415; 80053; 83036; 84153; 84443; 85025

== ENCOUNTER 2019-02-23 10:22 | Outpatient (CLI) | payer MEDICARE ==
[2019-02-23 10:52] LABS: BASOPHILS # (AUTO) 0.1 10^3/uL (0.0-0.1); BASOPHILS % (AUTO) 1.4 %; EOSINOPHILS # (AUTO) 0.3 10^3/uL (0.0-0.7); EOSINOPHILS % (AUTO) 3.3 %; HGB - HEMOGLOBIN 14.5 g/dL (14.0-18.0); LYMPHOCYTES # (AUTO) 1.5 10^3/uL (1.5-3.5); LYMPHOCYTES % (AUTO) 18.9 %; MEAN CORPUSCULAR HEMOGLOBIN 31.4 pg (27.0-31.0); MEAN CORPUSCULAR HGB CONC 33.2 g/dL (32.0-36.0); MEAN CORPUSCULAR VOLUME 94.6 fL (80.0-94.0); MEAN PLATELET VOLUME 9.7 fL (7.4-11.4); MONOCYTES # (AUTO) 0.6 10^3/uL (0.0-1.0); MONOCYTES % (AUTO) 7.4 %; NEUTROPHILS # (AUTO) 5.5 10^3/uL (1.5-6.6); PLT - PLATELET COUNT 252 10^3/uL (130-450); RED BLOOD COUNT 4.62 10^6/uL (4.70-6.10); RED CELL DISTRIBUTION WIDTH 13.6 % (12.0-15.0); WHITE BLOOD COUNT 8.1 x10^3/uL (4.8-10.8)
[2019-02-23 11:03] LABS: ALBUMIN 4.4 g/dL (3.2-5.5); ALBUMIN/GLOBULIN RATIO 1.4 (1.0-2.2); BILIRUBIN,TOTAL 0.7 mg/dL (0.2-1.0); CALCIUM 9.6 mg/dL (8.5-10.3); TOTAL PROTEIN 7.5 g/dL (6.7-8.2)
[2019-02-23 11:15] LABS: HB2 TOTAL 15.5 g/dL; HEMOGLOBIN A1C 0.68 g/dL; HEMOGLOBIN A1C % 6.2 % (4.6-6.2)
[2019-02-23 11:41] LABS: PSA SCREEN (Z12.5) 1.312 ng/mL (0.000-2.000)
[2019-02-23 11:46] LABS: FREE T3 3.04 pg/mL (2.5-3.9); THYROID STIMULATING HORMONE 2.73 uIU/mL (0.34-5.60)
[2019-02-23 11:48] LABS: FREE T4 (FREE THYROXINE) 0.91 ng/dL (0.58-1.64)
== END 2019-02-23 10:23 | disposition home or self-care (01) ==
LOC: LAB 10:22
PROVIDERS: ATTEND Family Medicine
DX: I10 Essential (primary) hypertension (principal); E11.9 Type 2 diabetes mellitus without complications; E03.9 Hypothyroidism, unspecified; D12.6 Benign neoplasm of colon, unspecified
CPT/HCPCS: 36415; 83036; 84439; 84481; G0103; 80053; 84153; 84443; 85025

== ENCOUNTER 2019-06-11 10:08 | Outpatient (CLI) | payer MEDICARE ==
[2019-06-11 18:39] LABS: HEMOGLOBIN A1C 0.74 g/dL
[2019-06-11 18:50] LABS: CALCIUM 9.3 mg/dL (8.5-10.3)
== END 2019-06-11 10:09 | disposition home or self-care (01) ==
LOC: LAB.S 10:08
PROVIDERS: ATTEND Family Medicine
DX: I10 Essential (primary) hypertension (principal); E11.9 Type 2 diabetes mellitus without complications; E03.9 Hypothyroidism, unspecified
CPT/HCPCS: 36415; 80048; 83036

== ENCOUNTER 2019-06-24 12:13 | Outpatient (CLI) | payer MEDICARE ==
--- NOTE | 2019-06-24 17:02 | CARDIAC PROCEDURE NOTE ---
DATE OF SERVICE: 06/24/2019 Physician: Francheska Talbot MD, [facility] INDICATION: Chest pain (left arm pain is his anginal equivalent) CARDIAC RISK FACTORS: Diabetes, hypertension, male gender, advanced age, family history of heart disease. DESCRIPTION OF PROCEDURE: After signing informed consent, the patient underwent a Jr-protocol treadmill stress test with nuclear myocardial perfusion imaging. RESTING HEART RATE: 61. PEAK HEART RATE: 132 (91% predicted maximum heart rate for age). RESTING BLOOD PRESSURE: 193/110. The patient then rested about 10 minutes and blood pressure at rest was 159/91. PEAK BLOOD PRESSURE: 179/92 before peak stage and then it dropped to 171/92 AT TRUE PEAK. The patient exercised for 5 minutes and 47 seconds on a Jr-protocol treadmill stress test. He achieved a peak HR of 132 (91% PMHR) and 6 METS. The patient reported his perceived exertion at peak at 16/20 and appeared significantly short of breath. Oxygen saturation was 94-97% throughout the entire test on room air. The patient denied chest pain or his left arm discomfort, but his blood pressure cuff was positioned on the left upper arm where he usually gets his anginal symptoms. Therefore, arm pain could have been masked with the cuff causing pressure there. RESTING EKG: Normal sinus rhythm, first-degree AV block, left atrial enlargement, right axis deviation, inferior Q-waves and early R/S transition suggesting posterior VT. EKG at near peak showed new horizontal ST depressions in leads V3 through V6. EKG AT PEAK: the patient went into a left bundle branch block vs VTach; therefore that EKG is not interpretable. The left bundle branch block vs VTach resolved after 33 seconds of recovery. The ST segments were then able to be followed and he had recovery of his ST segment depressions at 5 minutes of rest. SUMMARY: 1. Abnormal resting EKG. 2. Fair exercise tolerance. 3. Abnormal ST segment depressions developed during stage 2 of exercise stress, and abnormal EKG at peak with either left bundle branch block or VTach seen at peak. 4. Abnormally high blood pressure at rest (despite taking his morning Losartan), then abnormal blood pressure response to exercise with a drop occurring that paralleled the development of left bundle branch block vs VTach. 5. Nuclear images reported separately. 6. This patient's cardiac risk based on all the above: High. 7. I spoke to Dr. Liu and the above was reported. The patient was taken to the ER. cc: Ovidio Liu MD TD: 06/24/2019 15:53 MTDD
--- NOTE | 2019-06-25 10:07 | Nuclear Medicine Report ---
Reason: CHEST PX Procedure Date: 06/24/2019 Accession Number: [id number] / [id number] Procedure: NM - Myocardial Perfusion STR/RST CPT Code: Final Report FULL RESULT: EXAM: SINGLE-ISOTOPE EXERCISE STRESS TEST. SINGLE-ISOTOPE AND ONE-DAY REST/STRESS MYOCARDIAL PERFUSION SCANS WITH TOMOGRAPHIC IMAGING, QUANTITATIVE ANALYSIS, WALL MOTION ANALYSIS AND CALCULATION OF EJECTION FRACTION. EXAM DATE: 06/24/2019 04:50 PM. CLINICAL HISTORY: CHEST PX. COMPARISON: None. TECHNIQUE: A rest myocardial perfusion scan was done with tomography after the intravenous administration of 10.6 mCi Tc-99m sestamibi. After an appropriate delay, a treadmill exercise stress was performed according to department protocol. The patient exercised for 5 minutes and 47 seconds. The maximum heart rate was 132 bpm, which was 91% of the maximum predicted heart rate of 144 bpm. At approximately peak heart rate, 40.5 mCi of Tc-99m sestamibi was injected for stress myocardial perfusion scan. Motion correction was applied when appropriate. Gated tomographic images were obtained for wall motion analysis and computation of left ventricular ejection fraction. FINDINGS: Perfusion images: Left ventricular chamber size appears normal at rest and unchanged at stress. No convincing fixed perfusion deficits. Moderate size, moderate severity reversible perfusion deficit involving the apical third anteroseptal wall and anterior apex. SSS 10, SRS 0, SDS 10. Gated images: There is evidence of mild inferior wall hypokinesis. Calculated left ventricular EDV 66 mL, ESV 28 mL. The left ventricular ejection fraction is estimated at 57% (normal > 50%). IMPRESSION: 1. Moderate size, moderate severity apical third anteroseptal wall and anterior apical reversible perfusion deficit consistent with stress-induced ischemia. 2. No convincing fixed perfusion deficits. 3. Left ventricular ejection fraction of 57% (normal > 50%). Please correlate findings with stress ECG tracings and procedure notes. RADIA
== END 2019-06-24 12:14 | disposition home or self-care (01) ==
LOC: DI 12:13
PROVIDERS: ATTEND Family Medicine
DX: I44.7 Left bundle-branch block, unspecified (principal); R94.31 Abnormal electrocardiogram [ECG] [EKG]; I20.9 Angina pectoris, unspecified; I25.2 Old myocardial infarction; Q79.59 Other congenital malformations of abdominal wall
CPT/HCPCS: 78452; 93017; A9500

== ENCOUNTER 2019-06-24 16:37 | Emergency (ER) | payer MEDICARE ==
--- NOTE | 2019-06-24 16:53 | ED Physician Documentation ---
History of Present Illness - Stated complaint Stated Complaint: LT ARM PX - History obtained from History obtained from: Patient, Family - History of Present Illness Timing: Today Pain level max: 3 Pain level now: 0 - Additonal information Additional information: 74-year-old male was undergoing a cardiac stress test today when it was found to be "significantly abnormal" according to cardiology, Dr. Talbot. He developed left arm pain as well. He is sent to the emergency department for transfer to cardiology. He is asymptomatic currently. Nothing makes it better or worse. Patient states that he has been having intermittent left arm pain when walking especially up hills for the past 3 to 4 weeks. Does not have any cardiac history. Has not seen a stenotype operator. No stents in the past. Takes a baby aspirin daily. Review of Systems Ten Systems: 10 systems reviewed and negative Constitutional: denies: Fever, Chills Nose: denies: Rhinorrhea / runny nose, Congestion Respiratory: denies: Dyspnea, Cough GI: denies: Nausea, Vomiting, Diarrhea : denies: Dysuria Skin: denies: Rash Musculoskeletal: denies: Neck pain, Back pain Neurologic: denies: Headache PD PAST MEDICAL HISTORY - Past Medical History Cardiovascular: Hypertension Respiratory: None Neuro: None Endocrine/Autoimmune: Type 2 diabetes, HyPOthyroidism GI: GERD, Colon polyps : Benign prostate hypertrophy HEENT: None Psych: None Musculoskeletal: None Derm: None - Past Surgical History Past Surgical History: Yes General: Colonoscopy, EGD Derm: Other - Present Medications Home Medications: Ambulatory Orders Medication Instructions Recorded Confirmed Aspirin EC [Ecotrin] 81 mg PO DAILY 03/30/13 12/13/16 Levothyroxine [Synthroid] 112 mcg PO QDAC 03/30/13 12/13/16 Omeprazole 20 mg PO BID 03/30/13 12/13/16 - Allergies Allergies/Adverse Reactions: Allergies Allergy/AdvReac Type Severity Reaction Status Date / Time latex Allergy unknown Verified 06/24/19 16:56 crab Allergy Unknown Hives Uncoded 04/07/18 15:11 - Social History Does the pt smoke?: No Smoking Status: Never smoker Does the pt drink ETOH?: Yes Does the pt have substance abuse?: No - Immunizations Immunizations are current?: Yes - POLST Patient has POLST: No PD ED PE NORMAL - Vitals Vital signs reviewed: Yes - General General: Alert and oriented X 3, No acute distress, Well developed/nourished - HEENT HEENT: Moist mucous membranes - Neck Neck: Supple, no meningeal sign - Cardiac Cardiac: RRR, Strong equal pulses - Respiratory Respiratory: No respiratory distress, Clear bilaterally - Abdomen Abdomen: Soft, Non tender, Non distended - Derm Derm: Warm and dry, No rash - Extremities Extremities: No edema - Neuro Neuro: Alert and oriented X 3 - Psych Psych: Normal mood, Normal affect Results - Vitals Vitals: Vital Signs - 24 hr 06/24/19 06/24/19 16:56 18:00 Temperature 37 C Heart Rate 73 76 Respiratory 15 14 Rate Blood Pressure 175/93 H 157/57 H O2 Saturation 97 94 Oxygen O2 Source Room air - EKG (time done) 1711 Rate: Rate (enter#) (73) Rhythm: NSR [place]: Normal Intervals: Normal ME QRS: Normal Ischemia: Normal ST segments - Labs Labs: Laboratory Tests 06/24/19 06/24/19 06/24/19 17:09 17:09 17:39 WBC 8.5 RBC 4.57 L Hgb 14.2 Hct 42.9 MCV 93.9 MCH 31.1 H MCHC 33.1 RDW 13.7 Plt Count 221 MPV 11.1 Neut # (Auto) 5.7 Lymph # (Auto) 1.5 [place] # (Auto) 0.5 Eos # (Auto) 0.6 Baso # (Auto) 0.1 Absolute Nucleated RBC 0.00 Nucleated RBC % 0.0 Sodium 136 Potassium 3.9 Chloride 100 L Carbon Dioxide 24 Anion Gap 12.0 BUN 15 Creatinine 1.0 Estimated GFR (MDRD) 73 L Glucose 169 H Calcium 8.9 Total Bilirubin 0.9 AST 27 ALT 24 Alkaline Phosphatase 77 Troponin I High Sens 3.8 Total Protein 6.9 Albumin 4.1 Globulin 2.8 Albumin/Globulin Ratio 1.5 Lipase 40 PD MEDICAL DECISION MAKING - ED course Complexity details: reviewed results, re-evaluated patient, considered differential, d/w patient, d/w family, d/w proposal consultant ED course: Patient with what sounds like stable angina with exertion, though according to Dr. Talbot, cardiology here, has a significantly abnormal cardiac stress test and may need a bypass. He was given a full dose aspirin in the emergency department. Started on a heparin drip. Asymptomatic here. Discussed the case with Alejandro William, Dr. Ross who found a bed at [facility] in [place] for the patient. Accepted there by Dr. Loki Robert. Accepted at 1752. COBRA forms completed. Patient transferred This document was made in part using voice recognition software. While efforts are made to proofread this document, sound alike and grammatical errors may occur. Dr. Talbot spoke with Alejandro William as well. Departure - Departure Disposition: 02 Transfer Acute Care Hosp Clinical Impression: Stable angina, Abnormal electrocardiography during exercise stress test Condition: Stable
--- NOTE | 2019-06-24 17:17 | XRAY Report ---
Reason: Chest Pain Procedure Date: 06/24/2019 Accession Number: [id number] / [id number] Procedure: XR - Chest 1 View X-Ray CPT Code: 23757 Final Report FULL RESULT: EXAM: CHEST RADIOGRAPHY EXAM DATE: 06/24/2019 05:12 PM. CLINICAL HISTORY: Chest Pain. COMPARISON: 04/07/2018. TECHNIQUE: 1 view. FINDINGS: Lungs/Pleura: No focal opacities evident. No pleural effusion. No pneumothorax. Mediastinum: Within exam limitations, the cardiomediastinal contour is normal. Other: None. IMPRESSION: Normal single view chest. RADIA
[2019-06-24 17:23] LABS: BASOPHILS # (AUTO) 0.1 10^3/uL (0.0-0.1); BASOPHILS % (AUTO) 1.3 %; EOSINOPHILS # (AUTO) 0.6 10^3/uL (0.0-0.7); EOSINOPHILS % (AUTO) 6.7 %; HGB - HEMOGLOBIN 14.2 g/dL (14.0-18.0); LYMPHOCYTES # (AUTO) 1.5 10^3/uL (1.5-3.5); LYMPHOCYTES % (AUTO) 17.2 %; MEAN CORPUSCULAR HEMOGLOBIN 31.1 pg (27.0-31.0); MEAN CORPUSCULAR HGB CONC 33.1 g/dL (32.0-36.0); MEAN CORPUSCULAR VOLUME 93.9 fL (80.0-94.0); MEAN PLATELET VOLUME 11.1 fL (7.4-11.4); MONOCYTES # (AUTO) 0.5 10^3/uL (0.0-1.0); MONOCYTES % (AUTO) 6.2 %; NEUTROPHILS # (AUTO) 5.7 10^3/uL (1.5-6.6); NEUTROPHILS % (AUTO) 67.4 %; PLT - PLATELET COUNT 221 10^3/uL (130-450); RED BLOOD COUNT 4.57 10^6/uL (4.70-6.10); RED CELL DISTRIBUTION WIDTH 13.7 % (12.0-15.0); WHITE BLOOD COUNT 8.5 x10^3/uL (4.8-10.8)
[2019-06-24] MEDS ORDERED: ASPIRIN CHEW 81 MG TABLET PO STA (17:23)
[2019-06-24] MEDS ORDERED: HEPARIN 25000UNITS/500ML (D5W) 25,000 UNIT/500 ML BAG IV STA (17:28)
[2019-06-24 17:56] LABS: ALBUMIN 4.1 g/dL (3.2-5.5); ALBUMIN/GLOBULIN RATIO 1.5 (1.0-2.2); BILIRUBIN,TOTAL 0.9 mg/dL (0.2-1.0); CALCIUM 8.9 mg/dL (8.5-10.3); TOTAL PROTEIN 6.9 g/dL (6.7-8.2)
[2019-06-24 19:38] VITALS: BP 160/90
== END 2019-06-24 19:53 | disposition short-term general hospital (02) ==
LOC: ED 16:37
DX: I20.9 Angina pectoris, unspecified (principal); R94.31 Abnormal electrocardiogram [ECG] [EKG]; I10 Essential (primary) hypertension; E11.9 Type 2 diabetes mellitus without complications; Z79.82 Long term (current) use of aspirin; I44.7 Left bundle-branch block, unspecified; I25.2 Old myocardial infarction; Q79.59 Other congenital malformations of abdominal wall
CPT/HCPCS: 36415; 71045; 78452; 80053; 83690; 84484; 85025; 93005; 93017; 96374; 99285; A9270; A9500

== ENCOUNTER 2019-07-09 07:25 | Outpatient (CLI) | payer MEDICARE ==
[2019-07-09] MEDS ORDERED: IOVERSOL 320 100 ML VIAL IVP ONE ×2 (07:42→08:45)
[2019-07-09] MEDS ORDERED: IOVERSOL 320 50 ML VIAL ONE (07:42)
[2019-07-09] MEDS ORDERED: IOVERSOL 320 50 ML VIAL PO ONE (08:45)
--- NOTE | 2019-07-09 23:54 | CT Report ---
Reason: PERIUMBILICAL PAIN Procedure Date: 07/09/2019 Accession Number: [id number] / [id number] Procedure: CT - ABDOMEN W CPT Code: Final Report FULL RESULT: EXAM: CT ABDOMEN EXAM DATE: 07/09/2019 08:43 AM. CLINICAL HISTORY: PERIUMBILICAL PAIN. COMPARISON: None. TECHNIQUE: Routine helical CT imaging was performed through the abdomen. IV contrast: OPTIRAY 320, 100 cc Enteric contrast: Yes Reconstruction: Coronal and sagittal. In accordance with CT protocol optimization, one or more of the following dose reduction techniques were utilized for this exam: automated exposure control, adjustment of mA and/or KV based on patient size, or use of iterative reconstructive technique. FINDINGS: Lung Bases: Unremarkable. Liver: Normal. No masses. Gallbladder/Bile Ducts: Status post cholecystectomy. Trace pneumobilia may be from prior sphincterotomy. Spleen: Normal. Pancreas: Normal. Adrenal Glands: Normal. Kidneys: Normal. No masses or hydronephrosis. Peritoneal Cavity/Bowel: Tiny periumbilical fat-containing hernia. Defect in the abdominal wall is 9 mm. The bowel that is visualized on this exam is normal in appearance. Oral contrast has reached the terminal ileum. Most of the appendix is visualized and is normal. The tip is not seen. No free air or free fluid on available images. Vasculature: No aneurysms or other significant abnormality. Bones: No significant abnormality. Other: None. IMPRESSION: Tiny fat-containing periumbilical hernia, otherwise normal CT of the abdomen. RADIA
== END 2019-07-09 07:26 | disposition home or self-care (01) ==
LOC: DI 07:25
PROVIDERS: ATTEND Internal Medicine Gastroenterology
DX: K42.9 Umbilical hernia without obstruction or gangrene (principal)
CPT/HCPCS: 74160; Q9967

== ENCOUNTER 2020-02-05 06:56 | Outpatient (CLI) | payer MEDICARE ==
[2020-02-05 15:44] LABS: ALBUMIN 3.8 g/dL (3.2-5.5); ALBUMIN/GLOBULIN RATIO 1.4 (1.0-2.2); ALKALINE PHOSPHATASE 95 IU/L (42-121); ALT ALANINE AMINOTRANSFERASE 25 IU/L (10-60); AST ASPARTATE AMINOTRANSFERASE 31 IU/L (10-42); BILIRUBIN,TOTAL 0.6 mg/dL (0.2-1.0); BUN - BLOOD UREA NITROGEN 18 mg/dL (6-20); CALCIUM 8.7 mg/dL (8.5-10.3); CARBON DIOXIDE - CO2 24 mmol/L (21-32); CHLORIDE 103 mmol/L (101-111); CHOLESTEROL 65 mg/dL; GLUCOSE 118 mg/dL (70-100); HDL CHOLESTEROL 22 mg/dL; LDL CHOLESTEROL,CALCULATED 15 mg/dL; LDL CHOLESTEROL,DIRECT 28 mg/dL; LDL/HDL RATIO 0.7 (<3.6); SODIUM 135 mmol/L (135-145); TOTAL PROTEIN 6.6 g/dL (6.7-8.2); VLDL CHOLESTEROL 28 mg/dL
== END 2020-02-05 06:57 | disposition home or self-care (01) ==
LOC: LAB.S 06:56
PROVIDERS: ATTEND Internal Medicine Cardiovascular Disease
DX: I10 Essential (primary) hypertension (principal); I25.10 Atherosclerotic heart disease of native coronary artery without angina pectoris; R07.9 Chest pain, unspecified
CPT/HCPCS: 36415; 80053; 80061; 83721

== ENCOUNTER 2020-06-28 07:34 | Outpatient (CLI) | payer MEDICARE ==
[2020-06-28 15:23] LABS: HEMOGLOBIN A1c% 6.7 % (4.27-6.07)
[2020-06-28 16:31] LABS: CALCIUM 9.4 mg/dL (8.5-10.3)
[2020-06-28 16:41] LABS: CREATININE,URINE 86.4 mg/dL; MICROALBUM/CREATININE RATIO,UR 5.8 ug/mg (<30.0); MICROALBUMIN,URINE 0.5 mg/dL (0-300.0)
== END 2020-06-28 07:35 | disposition home or self-care (01) ==
LOC: LAB.S 07:34
PROVIDERS: ATTEND Family Medicine
DX: E11.9 Type 2 diabetes mellitus without complications (principal)
CPT/HCPCS: 36415; 80048; 82043; 82570; 83036

== ENCOUNTER 2020-12-30 15:07 | Outpatient (CLI) | payer MEDICARE | END 2020-12-30 15:08 | disposition critical access hospital (66) | LOC: EMS 15:07 | DX: R42 Dizziness and giddiness (principal); R11.10 Vomiting, unspecified | CPT/HCPCS: A0425; A0427 ==

== ENCOUNTER 2020-12-30 15:39 | Emergency (ER) | payer MEDICARE ==
[2020-12-30] MEDS ORDERED: ONDANSETRON ODT 4 MG TABLET TL STA (15:55)
[2020-12-30] MEDS ORDERED: MECLIZINE 12.5 MG TABLET PO STA (15:55)
--- NOTE | 2020-12-30 15:57 | ED Physician Documentation ---
PD HPI FOCAL NEURO - Stated complaint Stated Complaint: DIZZY/VOMITING - Chief complaint Chief Complaint: Neuro - History obtained from History obtained from: Patient, Family - Additional information Additional information: 75-year-old gentleman with history of diabetes, coronary disease and history of meningioma removal has been dealing with episodic vertigo since yesterday. He describes it as like his head being in a fish bowl spinning around. He is asymptomatic now but states that it is reliably present if he sits up or moves his head. He denies double vision, weakness, numbness, tingling, or uncoordination but he does have trouble walking and vomiting when it is bad. Review of Systems Ten Systems: 10 systems reviewed and negative Constitutional: reports: Reviewed and negative Ears: reports: Reviewed and negative PD PAST MEDICAL HISTORY - Past Medical History Cardiovascular: Hypertension Respiratory: None Neuro: None Endocrine/Autoimmune: Type 2 diabetes, HyPOthyroidism GI: GERD, Colon polyps : Benign prostate hypertrophy HEENT: None Psych: None Musculoskeletal: None Derm: None - Past Surgical History Past Surgical History: Yes General: Colonoscopy, EGD Derm: Other - Present Medications Home Medications: Ambulatory Orders Medication Instructions Recorded Confirmed Aspirin EC [Ecotrin] 81 mg PO DAILY 03/30/13 12/30/20 Omeprazole 20 mg PO BID 03/30/13 12/30/20 Levothyroxine [Synthroid] 125 mcg PO QDAC 06/24/19 12/30/20 Losartan Potassium 50 mg PO BID 06/24/19 12/30/20 metFORMIN [Glucophage] 1,000 mg PO BID 06/24/19 12/30/20 Atorvastatin Calcium [Lipitor] 80 mg PO DAILY 12/30/20 12/30/20 Betamethasone Valerate 1 applic TOP DAILY 12/30/20 12/30/20 Clopidogrel [Plavix] 75 mg PO DAILY 12/30/20 12/30/20 Meclizine HCl [Motion Sickness] 25 mg PO Q6H PRN #20 tablet 12/30/20 Nitroglycerin [Nitrostat] 0.4 mg SL PRN 12/30/20 Ondansetron Odt [Zofran] 4 mg TL Q6H PRN #10 tablet 12/30/20 amLODIPine [Norvasc] 2.5 mg PO DAILY 12/30/20 12/30/20 - Allergies Allergies/Adverse Reactions: Allergies Allergy/AdvReac Type Severity Reaction Status Date / Time crab Allergy Hives Verified 07/09/19 08:50 latex Allergy unknown Verified 06/24/19 16:56 Penicillins Allergy Unknown Verified 12/30/20 15:49 - Social History Does the pt smoke?: No Smoking Status: Never smoker Does the pt drink ETOH?: Yes Does the pt have substance abuse?: No - Immunizations Immunizations are current?: Yes - POLST Patient has POLST: No PD ED PE NORMAL - Vitals Vital signs reviewed: Yes - General General: Alert and oriented X 3, No acute distress - HEENT HEENT: PERRL, EOMI (There is no nystagmus), Other (There may be a very subtle ptosis of the right eyelid) - Neck Neck: Supple, no meningeal sign, No bony TTP - Cardiac Cardiac: RRR, No murmur - Respiratory Respiratory: No respiratory distress, Clear bilaterally - Abdomen Abdomen: Soft, Non tender - Back Back: No CVA TTP, No spinal TTP - Derm Derm: Normal color, Warm and dry - Neuro Neuro: Alert and oriented X 3, No motor deficit, No sensory deficit, Normal speech, Other (There may be very subtle ataxia on [id number] testing of the left upper extremity) Eye Opening: Spontaneous Motor: Obeys Commands Verbal: Oriented GCS Score: 15 Results - Vitals Vitals: Vital Signs - 24 hr 12/30/20 15:44 Temperature 36.4 C L Heart Rate 69 Respiratory 16 Rate Blood Pressure 155/76 H O2 Saturation 96 Oxygen O2 Source Room air - Labs Labs: Laboratory Tests 12/30/20 12/30/20 16:16 16:16 WBC 12.9 H RBC 4.20 L Hgb 11.4 L Hct 36.3 L MCV 86.4 MCH 27.1 MCHC 31.4 L RDW 16.3 H Plt Count 306 MPV 9.5 Neut # (Auto) 11.3 H Lymph # (Auto) 0.9 L Garza # (Auto) 0.6 Eos # (Auto) 0.0 Baso # (Auto) 0.1 Absolute Nucleated RBC 0.00 Nucleated RBC % 0.0 Sodium 138 Potassium 4.2 Chloride 103 Carbon Dioxide 25 Anion Gap 10.0 BUN 18 Creatinine 0.9 Estimated GFR (MDRD) 82 L Glucose 153 H Calcium 9.2 PD MEDICAL DECISION MAKING - ED course ED course: 75-year-old gentleman with very positional vertigo. Potentially some very subtle neurologic signs but does not seem to lateralize or fit a particular pattern of a central cause. He is feeling much better after meclizine and Zofran and passed a road test without any ataxia. Head CT of the was normal with evidence of prior meningioma removal. Departure - Departure Disposition: 01 Home, Self Care Clinical Impression: Vertigo Condition: Good Record reviewed to determine appropriate education?: Yes Instructions: ED Vertigo Unspecified Prescriptions: Meclizine HCl [Motion Sickness] 25 mg PO Q6H PRN #20 tablet PRN Reason: Dizziness Ondansetron Odt [Zofran] 4 mg TL Q6H PRN #10 tablet PRN Reason: Nausea / Vomiting Comments: As discussed, the CT you had today does not preclude you from needing an MRI as routine screening after your meningioma and you should schedule this with your primary care physician. Return if worsening. You should be better within a few days. Follow-up with your primary, next available appointment. Medications/prescriptions were sent electronically to [facility] in [place].
[2020-12-30 16:19] LABS: BASOPHILS # (AUTO) 0.1 10^3/uL (0.0-0.1); BASOPHILS % (AUTO) 0.5 %; EOSINOPHILS % (AUTO) 0.3 %; HCT - HEMATOCRIT 36.3 % (42.0-52.0); HGB - HEMOGLOBIN 11.4 g/dL (14.0-18.0); LYMPHOCYTES # (AUTO) 0.9 10^3/uL (1.5-3.5); LYMPHOCYTES % (AUTO) 6.6 %; MEAN CORPUSCULAR HEMOGLOBIN 27.1 pg (27.0-31.0); MEAN CORPUSCULAR HGB CONC 31.4 g/dL (32.0-36.0); MEAN CORPUSCULAR VOLUME 86.4 fL (80.0-94.0); MEAN PLATELET VOLUME 9.5 fL (7.4-11.4); MONOCYTES # (AUTO) 0.6 10^3/uL (0.0-1.0); MONOCYTES % (AUTO) 4.3 %; NEUTROPHILS # (AUTO) 11.3 10^3/uL (1.5-6.6); NEUTROPHILS % (AUTO) 87.7 %; PLT - PLATELET COUNT 306 10^3/uL (130-450); RED CELL DISTRIBUTION WIDTH 16.3 % (12.0-15.0); WHITE BLOOD COUNT 12.9 x10^3/uL (4.8-10.8)
[2020-12-30 16:28] LABS: CALCIUM 9.2 mg/dL (8.5-10.3); CREATININE 0.9 mg/dL (0.6-1.2); POTASSIUM 4.2 mmol/L (3.5-5.0)
--- NOTE | 2020-12-30 16:40 | CT Report ---
PROCEDURE: HEAD WO INDICATIONS: vertigo TECHNIQUE: Noncontrast 4.5 mm thick angled axial sections acquired from the foramen magnum to the vertex. For r adiation dose reduction, the following was used: automated exposure control, adjustment of mA and/or kV according to patient size. COMPARISON: 12/13/2016, head CT and brain MRI FINDINGS: Image quality: Excellent. CSF spaces: Basal cisterns are patent. No extra-axial fluid collections. Ventricles are normal in size and shape. Brain: Left frontal lobe volume loss and low density changes are seen, with prior resection/treatment changes. No emily mass effect can be seen on the current study. No midline shift. No intracranial m asses or hemorrhage. Kwong-white matter interface is normal. Skull and face: Anterior left craniotomy changes are seen, with plate and screw fixation. Calvarium and visualized facial bones are intact, without suspicious lesions. Sinuses: Visualized sinuses and mastoids are clear. IMPRESSION: No emily masses can be seen on the current study. Left frontal lobe postoperative/edema changes are seen, with overlying craniotomy change. If it would be helpful for clinical management decision making, please consider a dedicated brain MRI (without and with contrast) for further evaluation (assuming that there is no contraindication). Reviewed by: Shahram Multani MD on 12/30/2020 3:39 PM JESSICA Approved by: Shahram Multani MD on 12/30/2020 3:39 PM JESSICA Station ID: [id number]
[2020-12-30 17:21] VITALS: BP 133/105
== END 2020-12-30 17:21 | disposition home or self-care (01) ==
LOC: EDUNIT# → ED 15:39
DX: H81.10 Benign paroxysmal vertigo, unspecified ear (principal); R11.10 Vomiting, unspecified; H02.401 Unspecified ptosis of right eyelid; Z86.018 Personal history of other benign neoplasm; I25.10 Atherosclerotic heart disease of native coronary artery without angina pectoris; I10 Essential (primary) hypertension; E11.9 Type 2 diabetes mellitus without complications; Z79.84 Long term (current) use of oral hypoglycemic drugs; Z79.02 Long term (current) use of antithrombotics/antiplatelets; Z79.82 Long term (current) use of aspirin
CPT/HCPCS: 36415; 70450; 80048; 85025; 99284; A9270; Q0162

== ENCOUNTER 2021-01-04 07:02 | Outpatient (CLI) | payer MEDICARE ==
[2021-01-04 14:46] LABS: BASOPHILS # (AUTO) 0.1 10^3/uL (0.0-0.1); EOSINOPHILS # (AUTO) 0.4 10^3/uL (0.0-0.7); EOSINOPHILS % (AUTO) 4.5 %; HCT - HEMATOCRIT 38.6 % (42.0-52.0); HGB - HEMOGLOBIN 11.8 g/dL (14.0-18.0); LYMPHOCYTES # (AUTO) 1.6 10^3/uL (1.5-3.5); LYMPHOCYTES % (AUTO) 16.6 %; MEAN CORPUSCULAR HEMOGLOBIN 27.3 pg (27.0-31.0); MEAN CORPUSCULAR HGB CONC 30.6 g/dL (32.0-36.0); MEAN CORPUSCULAR VOLUME 89.1 fL (80.0-94.0); MEAN PLATELET VOLUME 10.4 fL (7.4-11.4); MONOCYTES # (AUTO) 0.7 10^3/uL (0.0-1.0); MONOCYTES % (AUTO) 7.3 %; NEUTROPHILS # (AUTO) 6.9 10^3/uL (1.5-6.6); NEUTROPHILS % (AUTO) 69.7 %; PLT - PLATELET COUNT 344 10^3/uL (130-450); RED BLOOD COUNT 4.33 10^6/uL (4.70-6.10); RED CELL DISTRIBUTION WIDTH 16.6 % (12.0-15.0); WHITE BLOOD COUNT 9.9 x10^3/uL (4.8-10.8)
[2021-01-04 15:11] LABS: ALBUMIN 4.1 g/dL (3.2-5.5); ALBUMIN/GLOBULIN RATIO 1.3 (1.0-2.2); ALKALINE PHOSPHATASE 93 IU/L (42-121); ALT ALANINE AMINOTRANSFERASE 22 IU/L (10-60); AST ASPARTATE AMINOTRANSFERASE 23 IU/L (10-42); BILIRUBIN,TOTAL 0.8 mg/dL (0.2-1.0); BUN - BLOOD UREA NITROGEN 22 mg/dL (6-20); CALCIUM 9.1 mg/dL (8.5-10.3); CARBON DIOXIDE - CO2 27 mmol/L (21-32); CHLORIDE 101 mmol/L (101-111); CHOL/HDL RATIO 2.7 (<5.0); CHOLESTEROL 78 mg/dL; CREATININE 0.9 mg/dL (0.6-1.2); GFR - MDRD 82 (>89); GLUCOSE 127 mg/dL (70-100); HDL CHOLESTEROL 29 mg/dL; LDL CHOLESTEROL,CALCULATED 23 mg/dL; LDL/HDL RATIO 0.8 (<3.6); POTASSIUM 4.4 mmol/L (3.5-5.0); SODIUM 138 mmol/L (135-145); TOTAL PROTEIN 7.2 g/dL (6.7-8.2); TRIGLYCERIDES 132 mg/dL; VLDL CHOLESTEROL 26 mg/dL
[2021-01-04 15:12] LABS: THYROID STIMULATING HORMONE 3.07 uIU/mL (0.34-5.60)
== END 2021-01-04 07:03 | disposition home or self-care (01) ==
LOC: LAB.S 07:02
PROVIDERS: ATTEND Family Medicine
DX: I25.118 Atherosclerotic heart disease of native coronary artery with other forms of angina pectoris (principal); I10 Essential (primary) hypertension; E11.9 Type 2 diabetes mellitus without complications; E03.9 Hypothyroidism, unspecified
CPT/HCPCS: 36415; 80053; 80061; 83721; 84443; 85025

== ENCOUNTER 2023-08-06 07:00 | Outpatient (CLI) | payer MEDICARE | END 2023-08-06 23:59 | disposition home or self-care (01) | LOC: LAB.S 07:00 | PROVIDERS: ATTEND Registered Nurse | DX: L98.9 Disorder of the skin and subcutaneous tissue, unspecified (principal) | CPT/HCPCS: 87101 ==